=== PATIENT | male | born 1980 | race Caucasian/White ===

== ENCOUNTER 2023-02-14 19:34 | Observation (INO) | payer OTHER ==
[2023-02-14] MEDS ORDERED: ACETAMINOPHEN 1000 MG/100 ML BAG IVPB ONE ×2 (20:10→20:27)
[2023-02-14] MEDS ORDERED: LIDOCAINE 5% TOPICAL PATCH TP ONE (20:28)
[2023-02-14] MEDS: SODIUM CHLORIDE 1,000 ML IV SCH (20:37)
[2023-02-14 20:39] LABS: BASO % 0.7 % (0-2.0); EOS % 2.3 % (0-4.5); HEMATOCRIT 42.8 % (35.4-49); HEMOGLOBIN 14.6 GM/dL (11.7-16.9); LYMPH % 31.1 % (8-40); MCH 30.2 pg (25.7-33.7); MCHC 34.2 g/dl (32.0-35.9); MEAN CELL VOLUME 88.3 fl (80-96); MEAN PLT VOLUME 6.8 fl (7.5-11.1); MONO % 6.9 % (3.8-10.2); PLATELET COUNT 323 10^3/uL (134-434); RBC 4.85 M/mm3 (4.00-5.60); RDW 14.1 % (11.9-15.9); WHITE BLOOD COUNT 11.7 K/mm3 (4.0-10.0)
[2023-02-14] MEDS ORDERED: ACETAMINOPHEN INJECTION 100 ML IVPB ONE (20:40)
[2023-02-14] MEDS ORDERED: LIDOCAINE 4% PATCH TP ONE (20:41)
[2023-02-14 20:51] LABS: INR 1.13 (0.83-1.09); PROTHROMBIN TIME (PATIENT) 13.1 SEC (9.7-13.0)
[2023-02-14 21:05] LABS: POTASSIUM 3.8 mmol/L (3.5-5.1)
[2023-02-14 21:06] LABS: CALCIUM 8.9 mg/dL (8.5-10.1)
[2023-02-14 21:07] LABS: ALBUMIN 3.9 g/dl (3.4-5.0); BLOOD UREA NITROGEN 18.7 mg/dL (7-18)
[2023-02-14 21:10] LABS: CHOLESTEROL 178 mg/dL (50-200); CREATININE 1.1 mg/dL (0.55-1.3)
[2023-02-14 21:11] LABS: LDL CHOLESTEROL (ONLY SJRH) 122 mg/dL (5-100)
[2023-02-14 21:12] LABS: BILIRUBIN,TOTAL 0.2 mg/dL (0.2-1); HDL CHOLESTEROL 27 mg/dL (40-60); TOT PROT 7.2 g/dl (6.4-8.2)
[2023-02-14 21:14] LABS: PH,URINE 7.5 (5.0-8.0); URINE APPEARANCE TURBID; URINE BILIRUBIN NEGATIVE (NEGATIVE); URINE COLOR YELLOW; URINE GLUCOSE (UA) NEGATIVE (NEGATIVE); URINE KETONE NEGATIVE (NEGATIVE); URINE LEUK ESTERASE NEGATIVE (NEGATIVE); URINE NITRITE NEGATIVE (NEGATIVE); URINE PROTEIN NEGATIVE (NEGATIVE)
[2023-02-14] MEDS: LIDOCAINE PATCH REMOVAL MC SCH (22:33)
[2023-02-14] MEDS ORDERED: ATORVASTATIN CA 80 MG TABLET (FP) PO ONE (23:26)
[2023-02-14] MEDS ORDERED: ASPIRIN 81 MG CHEWABLE TABLETS PO ONE (23:26)
[2023-02-14] MEDS ORDERED: ATORVASTATIN CA 80 MG TABLET (FP) ONE (23:47)
[2023-02-14] MEDS ORDERED: ASPIRIN 81 MG CHEWABLE TABLETS ONE (23:47)
[2023-02-15 08:04] LABS: CHLORIDE 108 mmol/L (98-107); SODIUM 139 mmol/L (136-145)
[2023-02-15 08:06] LABS: HEMATOCRIT 41.9 % (35.4-49); MCHC 33.5 g/dl (32.0-35.9); MEAN CELL VOLUME 89.6 fl (80-96); MEAN PLT VOLUME 7.2 fl (7.5-11.1); PLATELET COUNT 304 10^3/uL (134-434); RBC 4.68 M/mm3 (4.00-5.60); RDW 13.8 % (11.9-15.9); WHITE BLOOD COUNT 7.7 K/mm3 (4.0-10.0)
[2023-02-15 08:08] LABS: CALCIUM 8.4 mg/dL (8.5-10.1)
[2023-02-15 08:09] LABS: ANION GAP 4 mmol/L (4-13); CO2 26 mmol/L (21-32); GLUCOSE,RANDOM 98 mg/dL (74-106); MAGNESIUM 2.4 mg/dL (1.8-2.4)
[2023-02-15 08:11] LABS: ALBUMIN 3.5 g/dl (3.4-5.0); BLOOD UREA NITROGEN 12.6 mg/dL (7-18)
[2023-02-15 08:12] LABS: PHOSPHOROUS 3.8 mg/dL (2.5-4.9); SGOT/AST 11 U/L (15-37)
[2023-02-15 08:14] LABS: BILIRUBIN,TOTAL 0.5 mg/dL (0.2-1); CREATININE 0.9 mg/dL (0.55-1.3); SGPT/ALT 26 U/L (13-61)
[2023-02-15 08:15] LABS: ALK PHOS 73 U/L (45-117)
[2023-02-15 08:16] LABS: TOT PROT 6.6 g/dl (6.4-8.2)
[2023-02-15] MEDS: ENOXAPARIN NA (PORCINE) 40 MG/0.4 ML DISP.SYRIN SQ SCH (09:07)
[2023-02-15] MEDS: ASPIRIN 81 MG CHEWABLE TABLETS PO SCH (09:07)
[2023-02-15] MEDS: SODIUM CHLORIDE 1,000 ML IV SCH (21:33)
[2023-02-15] MEDS: ATORVASTATIN CA 40 MG TABLET (FP) PO SCH (22:25)
[2023-02-15] MEDS: LIDOCAINE PATCH REMOVAL MC SCH (22:25)
[2023-02-16 00:57] VITALS: BMI 27.4
[2023-02-16] MEDS: ENOXAPARIN NA (PORCINE) 40 MG/0.4 ML DISP.SYRIN SQ SCH (10:46)
[2023-02-16] MEDS: ASPIRIN 81 MG CHEWABLE TABLETS PO SCH (10:47)
[2023-02-16] MEDS ORDERED: IBUPROFEN 800 MG/8 ML IJ IVPB PRN (11:11)
[2023-02-16 12:04] LABS: BASO % 0.3 % (0-2.0); EOS % 1.9 % (0-4.5); HEMATOCRIT 46.1 % (35.4-49); HEMOGLOBIN 15.1 GM/dL (11.7-16.9); LYMPH % 28.3 % (8-40); MCH 29.8 pg (25.7-33.7); MCHC 32.8 g/dl (32.0-35.9); MEAN CELL VOLUME 90.8 fl (80-96); MEAN PLT VOLUME 7.2 fl (7.5-11.1); MONO % 7.3 % (3.8-10.2); NEUT % 62.2 % (42.8-82.8); PLATELET COUNT 331 10^3/uL (134-434); RBC 5.07 M/mm3 (4.00-5.60); RDW 13.8 % (11.9-15.9)
[2023-02-16 12:24] LABS: POTASSIUM 3.7 mmol/L (3.5-5.1)
[2023-02-16 12:27] LABS: BLOOD UREA NITROGEN 9.9 mg/dL (7-18); CALCIUM 9.3 mg/dL (8.5-10.1); MAGNESIUM 2.6 mg/dL (1.8-2.4)
[2023-02-16 12:30] LABS: CREATININE 0.9 mg/dL (0.55-1.3); PHOSPHOROUS 2.8 mg/dL (2.5-4.9)
[2023-02-16 12:32] LABS: BILIRUBIN,TOTAL 0.5 mg/dL (0.2-1); TOT PROT 7.3 g/dl (6.4-8.2)
[2023-02-16] MEDS ORDERED: ACETAMINOPHEN/CAFFEINE/BUTALBITAL 1 TAB PO PRN (13:18)
[2023-02-16] MEDS: CYCLOBENZAPRINE HCL 5 MG TABLET PO SCH ×2 (14:33→21:40)
[2023-02-16] MEDS: ATORVASTATIN CA 40 MG TABLET (FP) PO SCH (21:39)
[2023-02-16] MEDS: LIDOCAINE PATCH REMOVAL MC SCH (21:41)
[2023-02-16] MEDS: SODIUM CHLORIDE 1,000 ML IV SCH (21:56)
[2023-02-17] MEDS: CYCLOBENZAPRINE HCL 5 MG TABLET PO SCH (05:55)
[2023-02-17 08:01] LABS: POTASSIUM 4.1 mmol/L (3.5-5.1)
[2023-02-17 08:04] LABS: BASO % 0.3 % (0-2.0); EOS % 3.2 % (0-4.5); HEMATOCRIT 42.5 % (35.4-49); HEMOGLOBIN 14.1 GM/dL (11.7-16.9); LYMPH % 36.4 % (8-40); MCH 29.8 pg (25.7-33.7); MCHC 33.2 g/dl (32.0-35.9); MEAN CELL VOLUME 89.8 fl (80-96); MEAN PLT VOLUME 7.1 fl (7.5-11.1); MONO % 8.3 % (3.8-10.2); NEUT % 51.8 % (42.8-82.8); PLATELET COUNT 299 10^3/uL (134-434); RBC 4.73 M/mm3 (4.00-5.60); RDW 13.7 % (11.9-15.9)
[2023-02-17 08:12] LABS: CALCIUM 8.4 mg/dL (8.5-10.1)
[2023-02-17 08:13] LABS: ALBUMIN 3.4 g/dl (3.4-5.0); BLOOD UREA NITROGEN 12.8 mg/dL (7-18); MAGNESIUM 2.2 mg/dL (1.8-2.4)
[2023-02-17 08:15] LABS: PHOSPHOROUS 4.3 mg/dL (2.5-4.9)
[2023-02-17 08:17] LABS: BILIRUBIN,TOTAL 0.4 mg/dL (0.2-1)
[2023-02-17 08:19] LABS: TOT PROT 6.4 g/dl (6.4-8.2)
[2023-02-17] MEDS: ENOXAPARIN NA (PORCINE) 40 MG/0.4 ML DISP.SYRIN SQ SCH (10:55)
[2023-02-17] MEDS ORDERED: IBUPROFEN 800 MG/8 ML IJ IVPB PRN (11:55)
[2023-02-17] MEDS ORDERED: MAGNESIUM SULF 50% (8.12 MEQ/2 ML-1 GM VIAL) IVPB ONE (12:15)
[2023-02-17] MEDS ORDERED: CYCLOBENZAPRINE HCL 5 MG TABLET PO SCH (14:00)
[2023-02-17] MEDS ORDERED: CYCLOBENZAPRINE HCL 10 MG TABLET (FP) PO SCH (14:00)
[2023-02-17 15:18] VITALS: BP 107/67; PULSE 84; RESP 16; TEMP 97.7
[2023-02-18] MEDS ORDERED: ASPIRIN COATED 81 MG TABLET.EC PO SCH (10:00)
== END 2023-02-17 18:58 | disposition home or self-care (01) ==
LOC: JER 19:34 → JERBED 23:42 → INTOOBSV 23:42 → J4W 02-16 00:47
PROVIDERS: ADMIT Internal Medicine; ATTEND Internal Medicine
PROC: 3E033NZ Introduction of Analgesics, Hypnotics, Sedatives into Peripheral Vein, Percutaneous Approach (ICD-10-PCS; principal; 2023-02-14)
PROC: 3E023GC Introduction of Other Therapeutic Substance into Muscle, Percutaneous Approach (ICD-10-PCS; 2023-02-14)
PROC: 3E033GC Introduction of Other Therapeutic Substance into Peripheral Vein, Percutaneous Approach (ICD-10-PCS; 2023-02-14)
PROC: 3E0337Z Introduction of Electrolytic and Water Balance Substance into Peripheral Vein, Percutaneous Approach (ICD-10-PCS; 2023-02-14)
DX: G43.809 Other migraine, not intractable, without status migrainosus (principal); M54.2 Cervicalgia; I10 Essential (primary) hypertension; D72.829 Elevated white blood cell count, unspecified; R94.8 Abnormal results of function studies of other organs and systems; Z87.828 Personal history of other (healed) physical injury and trauma
CPT/HCPCS: 36415; 70450-TC; 70496-TC; 70498-TC; 70551-TC; 71046-TC-FY; 80053; 80061; 81003; 83036; 83735; 84100; 84484; 85025; 85027; 85610; 85730; 86140; 86618; 86850; 86900; 86901; 93005; 93010; 93306-TC; 96361; 96372; 96374; 96375; 99285-25; G0378